=== PATIENT | female | born 1970 | race Caucasian/White ===

== ENCOUNTER 2023-10-14 10:56 | Emergency (ER) | payer BC, SELFPAY ==
[2023-10-14 11:12] VITALS: BP 127/80
--- NOTE | 2023-10-14 11:50 | ED.GENMED ---
History of Present Illness
General
Chief Complaint: Musculo-Skeletal Complaint
Exam Limitations: none
Time Seen by Provider: 10/14/23 11:20
Nursing documentation reviewed up to this point in time: agreed with
Travel History
Have you had any contact with someone who has COVID-19?: No
Do you have any symptoms of coronavirus? Fever > 100 degrees, chills, cough, shortness of breath, sore throat, loss of taste or smell, muscle aches, or headache?: No
History of Present Illness
History of Present Illness:
Patient is a 53-year-old female presents to the ER for evaluation. Patient reports on Thursday she had a metal shelf fall on her right forearm and since then complains of discomfort swelling and bruising to her forearm. She denies any other
injuries. She denies any numbness tingling to fingers. She has a history of osteoporosis
She wanted to make sure she did not break her forearm.
Past History
Past History
ED Past Medical History: HTN, Hypothyroidism, Other (Crohn's disease, Colitis, PE, PID) and Other (Ventricular tachycardia)
ED Past Surgical History: Cholecystectomy and Other (Hernia repair)
Social History
Tobacco: Former smoker
Alcohol: Former (Sober for the past 3 years as of January 2019)
Drug: None
Personal:
Living: alone
Family History
Family History: Other (Coronary disease and thyroid disease)
Review of Systems
Review of Systems
Allergies reviewed?: Yes
All Other Systems: ROS reviewed and negative except as documented in HPI and ROS
Constitutional: Reports no symptoms; Denies fever
Musculoskeletal: Reports other (bruising to right forearm)
Skin: Reports no symptoms
Neurological: Reports no symptoms
Hematologic/Lymphatic: Reports no symptoms
Psychiatric: Reports no symptoms
Phy Exam
General Physical Exam
General Presentation: no apparent distress
General age: appears stated age
General Skin: warm and dry
General Habitus: normal
General Mental: alert
General Hydration: appears well hydrated
Neurological Exam
Neurological Exam: alert and oriented x3
Musculoskeletal Exam
Musculoskeletal Exam: other (rue with strong pulses positive bruising to volar aspect of forearm very minimally swollen normal flexion extension of all fingers normal distal sensation normal cap refill)
Skin Exam
Skin Exam: normal color and warm/dry
Psychiatric Exam
Psychiatric Exam: normal mood/affect
Course
Orders/Labs/Results
Orders:
Orders
10/14/23 11:16
Forearm, Right 2 View [CR Forearm - Right 2 View] Urgent
Comment:
Reason For Exam: pain, swelling, bruising
Vital Signs
Initial and Last Documented VS:
Initial Vital Signs
Temp Pulse Resp BP Pulse Ox
98.2 F 75 16 127/80 98
10/14/23 11:12 10/14/23 11:12 10/14/23 11:12 10/14/23 11:12 10/14/23 11:12
Last Documented Vital Signs
Temp Pulse Resp BP Pulse Ox
98.2 F 75 16 127/80 98
10/14/23 11:12 10/14/23 11:12 10/14/23 11:12 10/14/23 11:12 10/14/23 11:12
MDM/Problems Addressed
Differential Diagnosis Includes:
Not limited to fracture, contusion
MDM/Problems Addressed:
Symptoms are consistent with contusion no obvious fracture on x-ray patient is in no acute distress. No evidence of compartment syndrome or DVT. Pt educated on worsening symptoms to return to the ER for.
*Critical Care Note
Total Time (30-74mins, 75-104mins- exclusive of procedures): Not Applicable
ED Attending Note
-
Portions of this chart may have been created with voice recognition software.� Occasional wrong word or��sound alike� substitutions may have occurred due to the inherent limitations of voice recognition software.
Discharge Plan
Departure
Patient Disposition: Home (Routine Discharge)
Date of Disposition: 10/14/23
Time of Disposition: 11:42
Patient with high blood pressure during this ER visit?: No
Condition: Fair
Covid-19: Not Applicable
Discharge Problem:
Contusion
Instructions: Contusion (DC)
Prescriptions:
No Action
valacyclovir [Valtrex] 1,000 MG tablet
1,000 mg PO BID
metoprolol tartrate 25 MG tablet
25 mg PO HS
cholestyramine-aspartame [Cholestyramine Light] 1 PACKET powder in packet
1 packet PO BID
levothyroxine [Tirosint] 88 MCG capsule
88 mcg PO DAILY
DHEA 10 mg-47 mg calcium Tablet
1 tab PO
naltrexone 4.5 mg Capsule
1 PO DAILY
Frankincense In Coconut Oil
topical PRN (Reason: abd cramping)
hydrocortisone
7.5 mg PO DAILY
Referrals:
Haris Rose MD [Family Provider] -
Stand Alone Forms: Return to Work
Activity Restrictions/Additional Instructions:
As discussed keep elevated as much as possible. You may take Tylenol for discomfort. Return to the ER if any worsening of symptoms including increasing pain swelling tingling in fingers. Follow-up with family doctor in the next 4 days as needed
for reevaluation.
Interventions
Interventions:
*ED COVID-19 Vaccine History Last Done: 10/14/23 11:12
Discharge Date and Time
Print Language: GREENLAND[place]
== END 2023-10-14 11:58 | disposition home or self-care (01) ==
LOC: EMR 10:56
PROVIDERS: EMERGENCY PHYSICIAN Emergency Medicine; FAMILY PHYSICIAN Family Medicine
DX: S50.11XA Contusion of right forearm, initial encounter (principal); W22.8XXA Striking against or struck by other objects, initial encounter; Z87.891 Personal history of nicotine dependence
CPT/HCPCS: 99283; 73090

== ENCOUNTER → 2023-12-03 15:46 | Outpatient (REF) | payer BC, SELFPAY | LOC: RAD 15:46 | PROVIDERS: ATTENDING PHYSICIAN Physician Assistant | DX: R05.1 Acute cough (principal) | CPT/HCPCS: 71046 ==

== ENCOUNTER → 2023-12-09 12:24 | Outpatient (REF) | payer BC, SELFPAY | LOC: RAD 12:24 | PROVIDERS: ATTENDING PHYSICIAN Physician Assistant | DX: R09.89 Other specified symptoms and signs involving the circulatory and respiratory systems (principal); R06.02 Shortness of breath; R09.02 Hypoxemia | CPT/HCPCS: 71046 ==

== ENCOUNTER → 2024-08-15 11:11 | Outpatient (REF) | payer OTHER, SELFPAY | LOC: RAD 11:11 | PROVIDERS: ATTENDING PHYSICIAN Nurse Practitioner Family | DX: R05.1 Acute cough (principal) | CPT/HCPCS: 71046 ==

== ENCOUNTER 2024-12-29 06:18 | Day surgery (SDC) | payer OTHER, SELFPAY ==
[2024-12-29 11:25] VITALS: BP 121/73; BMI 24.5
[2024-12-29 11:48] VITALS: BMI 24.5
[2024-12-29 14:00] VITALS: BP 104/59
[2024-12-29 14:15] VITALS: BP 114/72
[2024-12-29 14:30] VITALS: BP 112/69
== END 2024-12-29 14:55 | disposition home or self-care (01) ==
LOC: SDS 06:18
PROVIDERS: ATTENDING PHYSICIAN Internal Medicine
DX: K50.00 Crohn's disease of small intestine without complications (principal); K63.5 Polyp of colon; K57.30 Diverticulosis of large intestine without perforation or abscess without bleeding; K56.600 Partial intestinal obstruction, unspecified as to cause; K52.9 Noninfective gastroenteritis and colitis, unspecified; K44.9 Diaphragmatic hernia without obstruction or gangrene; R10.13 Epigastric pain; D50.9 Iron deficiency anemia, unspecified; R63.4 Abnormal weight loss; Z98.0 Intestinal bypass and anastomosis status
CPT/HCPCS: 45380; 43239; 88305; 88342

== ENCOUNTER → 2025-01-25 13:15 | Outpatient (REF) | payer OTHER, SELFPAY | LOC: MRI 13:15 | PROVIDERS: ATTENDING PHYSICIAN Internal Medicine; FAMILY PHYSICIAN Family Medicine | DX: K50.812 Crohn's disease of both small and large intestine with intestinal obstruction (principal) | CPT/HCPCS: 72197; 74183; A9575 ==

== ENCOUNTER → 2025-03-22 10:04 | Outpatient (REF) | payer OTHER, SELFPAY | LOC: RCS 10:04 | PROVIDERS: ATTENDING PHYSICIAN Internal Medicine Cardiovascular Disease; FAMILY PHYSICIAN Family Medicine | DX: I49.9 Cardiac arrhythmia, unspecified (principal) | CPT/HCPCS: 93306 ==

== ENCOUNTER 2025-04-24 11:38 | Emergency (ER) | payer OTHER, SELFPAY ==
[2025-04-24 11:45] VITALS: BP 127/75
--- NOTE | 2025-04-24 12:45 | ED.GENMED ---
History of Present Illness
General
Chief Complaint: Musculo-Skeletal Complaint
Source: patient
Exam Limitations: none
Time Seen by Provider: 04/24/25 12:42
Nursing documentation reviewed up to this point in time: agreed with
History of Present Illness
History of Present Illness:
Patient is a 54-year-old female past medical history of asthma, previous bowel resection presenting to the emergency department today with concerns of right posterior rib discomfort after being carried by her after their honeymoon. Ongoing
pain to the area since. Denies shortness of breath nausea vomiting numbness weakness. No abdominal pain.
Past History
Past History
ED Past Medical History: HTN, Hypothyroidism, Other (Crohn's disease, Colitis, PE, PID) and Other (Ventricular tachycardia)
ED Past Surgical History: Cholecystectomy and Other (Hernia repair)
Social History
Tobacco: Former smoker
Alcohol: Former (Sober for the past 3 years as of January 2019)
Drug: None
Personal:
Living: alone
Family History
Family History: Other (Coronary disease and thyroid disease)
Review of Systems
Review of Systems
Allergies reviewed?: Yes
All Other Systems: ROS reviewed and negative except as documented in HPI and ROS
Phy Exam
Physical Exam
Physical Exam:
GENERAL: Alert , in no apparent distress
EYE: pupils equal and reactive
NECK: Supple, no significant adenopathy.
ENT: o/p clr, mmm.
CARDIAC: Regular rate and rhythm .
LUNGS: Right posterior and lateral lower rib discomfort to palpation no abdominal pain or CVA tenderness clear breath sounds bilaterally, no acute respiratory distress, no wheezes/rales/rhonchi
ABDOMEN: Soft, without focal tenderness, no r/g, no cvat
NEUROLOGICAL: Alert and oriented, no focal neuro deficits
SKIN: Warm and dry, skin intact.
MUSCULOSKELETAL: No edema, well perfused.
PSYCH: Normal and appropriate interaction.
Course
Orders/Labs/Results
Orders:
Orders
04/24/25 12:44
CR Ribs-right 3 Vw W/pa Chest* Urgent
Comment:
Reason For Exam: right posterior rib pain after injury
Vital Signs
Initial and Last Documented VS:
Initial Vital Signs
Temp Pulse Resp BP Pulse Ox
97.7 F 77 18 127/75 99
04/24/25 11:45 04/24/25 11:45 04/24/25 11:45 04/24/25 11:45 04/24/25 11:45
Last Documented Vital Signs
Temp Pulse Resp BP Pulse Ox
97.7 F 77 18 127/75 99
04/24/25 11:45 04/24/25 11:45 04/24/25 11:45 04/24/25 11:45 04/24/25 12:46
MDM/Problems Addressed
MDM/Problems Addressed:
54-year-old female presenting to the emergency department with concerns of right lower lateral and posterior rib discomfort after after being carried by her a few days ago. No signs shortness of breath chest pain nausea vomiting. Here she
she does have reproducible pain to the area plan for rib series for further assessment. X-ray without evidence of acute abnormality. Stable for discharge at this time. Return precautions given.
*Pulse Oximetry
SaO2: 99
Oxygen Mode of Delivery: Room air
Patient hypoxic: no (99)
*Critical Care Note
Total Time (30-74mins, 75-104mins- exclusive of procedures): Not Applicable
ED Attending Note
-
Portions of this chart may have been created with voice recognition software.� Occasional wrong word or��sound alike� substitutions may have occurred due to the inherent limitations of voice recognition software.
Discharge Plan
Departure
Patient Disposition: Home (Routine Discharge)
Date of Disposition: 04/24/25
Time of Disposition: 15:13
Patient with high blood pressure during this ER visit?: No
Condition: Good
Covid-19: Not Applicable
Discharge Problem:
Contusion of rib
Instructions: Rib injury in adults
Prescriptions:
New
lidocaine [Aspercreme (lidocaine)] 4 % adhesive patch,medicated
1 patch topical Q24H PRN (Reason: Pain) Qty: 5 0RF
No Action
valacyclovir [Valtrex] 1,000 MG tablet
1,000 mg PO BID
metoprolol tartrate 25 MG tablet
25 mg PO HS
Cholestyramine Light 1 PACKET powder in packet
1 packet PO BID
levothyroxine [Tirosint] 88 MCG capsule
88 mcg PO DAILY
naltrexone 4.5 mg Capsule
3 mg PO DAILY
Frankincense In Coconut Oil
topical PRN (Reason: abd cramping)
Dhea
10 mg PO DAILY
Barimelts Iron With Vitamin C
2 tab sublingual QPM
Referrals:
Haris Rose MD [Family Provider, Family Practice]
Activity Restrictions/Additional Instructions:
You came to the emergency department today with concerns of right sided rib discomfort. Here you had a reassuring x-ray. Please use the lidocaine patch and Tylenol to help with pain. Return for any worsening, new or concerning symptoms.
Interventions
Interventions:
*Risk Screen - Suicide Last Done: 04/24/25 11:45
*General Assessment Last Done: 04/24/25 11:45
ED-Musculoskeletal Assessment Last Done: 04/24/25 12:56
Discharge Date and Time
Print Language: [place]
[2025-04-24 12:59] VITALS: BMI 25.8
[2025-04-24 15:20] VITALS: BP 131/71
== END 2025-04-24 15:21 | disposition home or self-care (01) ==
LOC: EMR 11:38
PROVIDERS: EMERGENCY PHYSICIAN Student in an Organized Health Care Education/Training Program; FAMILY PHYSICIAN Family Medicine
DX: S20.211A Contusion of right front wall of thorax, initial encounter (principal); X58.XXXA Exposure to other specified factors, initial encounter; I10 Essential (primary) hypertension; E03.9 Hypothyroidism, unspecified; J45.909 Unspecified asthma, uncomplicated; Z87.891 Personal history of nicotine dependence
CPT/HCPCS: 99283; 71101